=== PATIENT | male | born 1960 | race Two or more races ===

== ENCOUNTER 2017-01-31 10:13 | Emergency (ER) | payer MEDICAID, OTHER ==
[~2017-01-31] VITALS: Ht 184.2 cm; Wt 77.6 kg
--- NOTE | 2017-01-31 10:49 | Emergency Room Report ---
History of Present Illness General Chief Complaint: Lower Back Pain or Injury Source: Patient Present Illness HPI Is a 36-year-old male who presented after increased low back pain as well as left wrist pain. Patient reported having a fall in which he fell onto his back. As well as to left wrist. The patient no loss of consciousness. He reports having increased pain to his right flank as well as his right leg. He reports having pain to his leftwrist. Leg as well as to his low back. Fall occurred last week Allergies: Coded Allergies: No Known Allergies (Unverified , 01/31/17) Patient History Past Medical History: see triage record Reviewed Nursing Documentation: PMH: Agreed, PSxH: Agreed Nursing Documentation-PM Past Medical History: No History, Except For Hx Cardiac Problems: No - fistula surgery and left knee surgery Review of Systems All Other Systems: negative except mentioned in HPI Physical Exam Vital Signs Date Time Temp Pulse Resp B/P Pulse Ox O2 Delivery O2 Flow Rate FiO2 01/31/17 10:21 97.9 64 16 113/79 99 Room Air General Appearance: well appearing, no apparent distress, alert, GCS 15 Head: normocephalic, atraumatic ENT: hearing grossly normal, normal voice Neck: full range of motion, supple Respiratory: no respiratory distress, speaking full sentences Cardiovascular #1: normal inspection Gastrointestinal: normal bowel sounds Musculoskeletal: normal inspection, no calf tenderness, other - left wrist tenderness, scapphoid mild tenderness Neurologic: normal inspection, alert, oriented x3, responsive, normal gait Psychiatric: mood/affect normal Skin: no rash Medical Decision Making Diagnostic Impression: Primary Impression: Wrist pain, acute Additional Impressions: Low back pain Scaphoid fracture [facility] arthritis ER Course Patient was at for back pain. Differential diagnosis included but was not limited to herniated disc, cauda equina syndrome, abdominal aortic aneurysm, perforated ulcer, spinal epidural abscess, spinal stenosis, lumbar fracture, metastatic lesion, pyelonephritis. X-ray imaging was ordered due to patient's recent trauma. X-ray of the lumbar spine 3 views read by radiologist showed degenerative changes without fracture. X-ray of the left wrist read by radiology showed [facility] arthritis without definite scaphoid fracture. Patient was placed in a thumb spica splint. He is advised followup with his primary care physician for further evaluation. Last Vital Signs Date Time Temp Pulse Resp B/P Pulse Ox O2 Delivery O2 Flow Rate FiO2 01/31/17 10:21 97.9 64 16 113/79 99 Room Air Status: improved Disposition: HOME, SELF-CARE Condition: Stable Scripts Hydrocodone Bit/Acetaminophen 5-325* (NORCO 5-325*) 1 Each Tablet 1 TAB ORAL Q6H Y for For Pain, #10 TAB 0 Refills Prov: Shelton Antonio 01/31/17 Referrals: [facility] (PCP) Shelton Antonio Jan 31, 2017 10:49
[2017-01-31 10:50] VITALS: BP 113/79
[2017-01-31] MEDS ORDERED: NORCO 5-325 TA1 EACH ORAL (11:03)
[2017-01-31] MEDS: Ketorolac 60mg Inj IM ONE ×2 (11:11→11:14)
--- NOTE | 2017-01-31 11:46 | Diagnostic Imaging Report ---
Indication: Back pain Technique: 3 views of the lumbosacral spine. Comparison: None Findings: There is minimal scoliosis, possibly positional. Alignment is otherwise intact. No fracture. No evidence of bone destruction. There is minimal spur formation at C3-4 and C4-5. Impression: Minimal spurring. Minimal scoliosis, possibly positional. Otherwise negative.
[2017-01-31 11:58] VITALS: BP 113/79
--- NOTE | 2017-02-02 09:02 | Diagnostic Imaging Report ---
Indication: PAIN Technique: XRAY WRIST MIN 3V LEFT Comparison: None. Findings: There is mild narrowing of the first metacarpal carpal joint. The remainder the bones and joints are unremarkable. No fracture. No bone destruction. Impression: Degenerative change of the first metacarpal carpal joint.
== END 2017-01-31 11:59 | disposition home or self-care (01) ==
LOC: EMR 10:40
DX: M25.532 Pain in left wrist (principal); M54.5 Low back pain; S62.002A Unspecified fracture of navicular [scaphoid] bone of left wrist, initial encounter for closed fracture; W19.XXXA Unspecified fall, initial encounter; Y92.89 Other specified places as the place of occurrence of the external cause; M19.042 Primary osteoarthritis, left hand; M41.86 Other forms of scoliosis, lumbar region
CPT/HCPCS: 29280; 72020; 99283

== ENCOUNTER 2017-03-21 10:39 | Emergency (ER) | payer MEDICAID, OTHER ==
[~2017-03-21] VITALS: Ht 170.2 cm; Wt 77.1 kg
[~2017-03-21 10:39] MED LIST: NORCO 5-325 TA1 EACH ORAL
[2017-03-21] MEDS ORDERED: Mylanta II UD 30ml ORAL ONE (11:00)
[2017-03-21 11:02] VITALS: BP 126/78
[2017-03-21 11:26] LABS: TROPONIN I < 0.30 ng/mL (<=0.30)
[2017-03-21 11:27] LABS: ALANINE AMINOTRANSFERASE 25 U/L (3-41); ALBUMIN/GLOBULIN RATIO 1.5 (1.0-2.7); ANION GAP 11 (5-15); ASPARTATE AMINO TRANSFERASE 21 U/L (5-40); BASOPHILS % (AUTO) 0.9 % (0.0-2.0); CARBON DIOXIDE 26 mEQ/L (20-30); CHLORIDE 102 mEQ/L (98-107); CREATININE 0.9 mg/dL (0.7-1.2); EOSINOPHILS % (AUTO) 0.8 % (0.0-3.0); GLOMERULAR FILTRATION RATE > 60 mL/min (>60); HEMOLYSIS 2; LYMPHOCYTES % (AUTO) 25.5 % (20.0-45.0); MEAN CORPUSCULAR HEMOGLOBIN 30.2 PG (27.0-31.0); MEAN CORPUSCULAR HGB CONC 32.3 G/DL (32.0-36.0); MEAN CORPUSCULAR VOLUME 93 FL (80-99); MEAN PLATELET VOLUME 9.9 FL (6.5-10.1); MONOCYTES % (AUTO) 7.5 % (1.0-10.0); NEUTROPHILS % (AUTO) 65.3 % (45.0-75.0); PLATELET COUNT 199 K/UL (150-450); POTASSIUM 4.4 mEQ/L (3.4-4.9); RED BLOOD COUNT 5.03 M/UL (4.70-6.10); RED CELL DISTRIBUTION WIDTH 12.7 % (11.6-14.8); SODIUM 139 mEQ/L (135-145); TOTAL PROTEIN 6.8 g/dL (6.6-8.7); WHITE BLOOD COUNT 7.5 K/UL (4.8-10.8)
[2017-03-21 11:37] LABS: CKMB < 1.5 ng/mL (< 6.7)
--- NOTE | 2017-03-21 12:01 | Diagnostic Imaging Report ---
Indication: Chest pain Technique: XRAY CHEST 1 V Comparison: None Findings: Cardiomedial still silhouette is within normal limits. There is no consolidation, pneumothorax or pleural effusion. Mild interstitial prominence is noted. Degenerative changes of the spine are seen. Impression: No focal consolidation. Mild interstitial prominence, acute indeterminate. Clinical correlation recommended.
[2017-03-21 12:06] VITALS: BP 122/76
--- NOTE | 2017-03-25 23:22 | Emergency Room Report ---
History of Present Illness General Chief Complaint: Chest Pain Source: Patient Present Illness HPI Patient is a 56-year-old male presented after increased chest pain. He describes as a burning sensation. Patient was noted to have some numbness to his left arm which involve the fingers of his left hand only. Patient reports having recent alcohol use. He states that he had not been vomiting. He denies any exertional changed pain. He reports having a negative cardiac stress test approximately 2 years ago. He denies any black or bloody stools.The pain was constant in nature and had been present for greater than 6 hours Allergies: Coded Allergies: No Known Allergies (Unverified , 01/31/17) Patient History Past Medical History: see triage record Reviewed Nursing Documentation: PMH: Agreed, PSxH: Agreed Nursing Documentation-PMH Past Medical History: No Stated History Hx Cardiac Problems: No - fistula surgery and left knee surgery Review of Systems All Other Systems: negative except mentioned in HPI Physical Exam Vital Signs Date Time Temp Pulse Resp B/P (MAP) Pulse Ox O2 Delivery O2 Flow Rate FiO2 03/21/17 10:43 98.1 69 15 126/78 99 Room Air Sp02 EP Interpretation: reviewed, normal General Appearance: normal inspection, well appearing, no apparent distress, alert, GCS 15, non-toxic Head: atraumatic ENT: normal ENT inspection, hearing grossly normal, normal voice Neck: normal inspection, full range of motion, supple, no bony tend Respiratory: normal inspection, lungs clear, normal breath sounds, no respiratory distress, no retraction, no wheezing Cardiovascular #1: regular rate, rhythm, no edema Gastrointestinal: normal inspection, normal bowel sounds, non tender, soft, no guarding, no hernia Genitourinary: no CVA tenderness Musculoskeletal: normal inspection, back normal, normal range of motion Neurologic: normal inspection, alert, responsive, speech normal Psychiatric: normal inspection, judgement/insight normal, mood/affect normal Skin: normal inspection, normal color, no rash Medical Decision Making Diagnostic Impression: Primary Impression: Atypical chest pain ER Course Patient presented for chest pain. Differential diagnosis included but was not limited to acute coronary syndrome, pulmonary embolism, pneumonia, aortic dissection, shingles, pneumothorax, aortic dissection, esophageal rupture, pericarditis. Because of complexity of patient's case laboratory testing and imaging studies were ordered. EKG interpreted by me normal sinus rhythm without acute ST or T wave changes.I laboratory studies were unremarkable. Troponin was negativeThe patient was given Maalox. He is advised to have further workup if pain continued. He is advised outpatient stress testing and followup with his pr specialist. Labs Test 03/21/17 10:55 White Blood Count 7.5 K/UL (4.8-10.8) Red Blood Count 5.03 M/UL (4.70-6.10) Hemoglobin 15.2 G/DL (14.2-18.0) Hematocrit 47.0 % (42.0-52.0) Mean Corpuscular Volume 93 FL (80-99) Mean Corpuscular Hemoglobin 30.2 PG (27.0-31.0) Mean Corpuscular Hemoglobin Concent 32.3 G/DL (32.0-36.0) Red Cell Distribution Width 12.7 % (11.6-14.8) Platelet Count 199 K/UL (150-450) Mean Platelet Volume 9.9 FL (6.5-10.1) Neutrophils (%) (Auto) 65.3 % (45.0-75.0) Lymphocytes (%) (Auto) 25.5 % (20.0-45.0) Monocytes (%) (Auto) 7.5 % (1.0-10.0) Eosinophils (%) (Auto) 0.8 % (0.0-3.0) Basophils (%) (Auto) 0.9 % (0.0-2.0) D-Dimer 115 ng/mL (<500) Sodium Level 139 mEQ/L (135-145) Potassium Level 4.4 mEQ/L (3.4-4.9) Chloride Level 102 mEQ/L (98-107) Carbon Dioxide Level 26 mEQ/L (20-30) Anion Gap 11 (5-15) Blood Urea Nitrogen 12 mg/dL (7-23) Creatinine 0.9 mg/dL (0.7-1.2) Estimat Glomerular Filtration Rate > 60 mL/min (>60) Glucose Level 100 mg/dL (74-106) Calcium Level 9.0 mg/dL (8.6-10.2) Total Bilirubin 0.5 mg/dL (0.0-1.2) Aspartate Amino Transf (AST/SGOT) 21 U/L (5-40) Alanine Aminotransferase (ALT/SGPT) 25 U/L (3-41) Alkaline Phosphatase 61 U/L (40-129) Total Creatine Kinase 71 U/L (38-174) Creatine Kinase MB < 1.5 ng/mL (< 6.7) Creatine Kinase MB Relative Index 2.1 Troponin I < 0.30 ng/mL (<=0.30) Pro-B-Type Natriuretic Peptide 57 pg/mL (0-125) Total Protein 6.8 g/dL (6.6-8.7) Albumin 4.1 g/dL (3.5-5.2) Globulin 2.7 g/dL Albumin/Globulin Ratio 1.5 (1.0-2.7) EKG Diagnostic Results Rate: normal Rhythm: NSR ST Segments: no acute changes Last Vital Signs Date Time Temp Pulse Resp B/P (MAP) Pulse Ox O2 Delivery O2 Flow Rate FiO2 03/21/17 12:06 98.5 71 16 122/76 100 Room Air Status: improved Disposition: HOME, SELF-CARE Condition: Stable Patient Instructions: Nonspecific Chest Pain Shelton Antonio Mar 25, 2017 23:22
== END 2017-03-21 12:06 | disposition home or self-care (01) ==
LOC: EMR 11:10
DX: R07.89 Other chest pain (principal); R20.0 Anesthesia of skin
CPT/HCPCS: 36415; 71010; 80053; 82550; 82553; 83880; 84484; 85025; 85379; 93005; 99284

== ENCOUNTER 2017-05-29 14:19 | Emergency (ER) | payer OTHER ==
[~2017-05-29] VITALS: Ht 185.4 cm; Wt 77.1 kg
[2017-05-29 14:20] VITALS: BP 99/55
[2017-05-29] MEDS ORDERED: PROPECIA1 MG PO (14:24)
[2017-05-29] MEDS ORDERED: Ketorolac 60mg Inj IM ONE (14:45)
[2017-05-29] MEDS ORDERED: ROBAXIN-750750 MG PO (16:17)
[2017-05-29] MEDS ORDERED: ACETAMINOPHEN-1 EAC1 ORAL (16:17)
[2017-05-29] MEDS ORDERED: IBUPROFEN600 MG ORAL (16:17)
[2017-05-29 16:33] VITALS: BP 101/75
--- NOTE | 2017-05-29 19:21 | Emergency Room Report ---
History of Present Illness General Chief Complaint: Neck Pain Source: Patient Present Illness HPI The patient is a 56-year-old male presenting for neck pain which began 3 days prior. He states that this began the morning after he slept on the couch. Pain is 8/10 dull ache and does not radiate. Worse with head movement. he has tried Motrin at home which does help. He denies any other symptoms including nausea, vomiting, fever, chills, rash, blurred vision, dizziness, chest pain, shortness of breath Allergies: Coded Allergies: No Known Allergies (Unverified , 01/31/17) Patient History Past Medical History: see triage record Pertinent Family History: none Reviewed Nursing Documentation: PMH: Agreed, PSxH: Agreed Nursing Documentation-PMH Past Medical History: No History, Except For Hx Cardiac Problems: No - fistula surgery and left knee surgery Hx Hypertension: No Hx Pacemaker: No Hx Asthma: No Hx COPD: No Hx Diabetes: No Hx Cancer: No Hx Gastrointestinal Problems: No Hx Dialysis: No History Of Psychiatric Problem: No Hx Neurological Problems: No Hx Cerebrovascular Accident: No Hx Seizures: No Review of Systems All Other Systems: negative except mentioned in HPI Physical Exam Vital Signs Date Time Temp Pulse Resp B/P (MAP) Pulse Ox O2 Delivery O2 Flow Rate FiO2 05/29/17 14:20 98.1 70 16 99/55 98 Room Air Sp02 EP Interpretation: reviewed, normal General Appearance: no apparent distress, alert, GCS 15, non-toxic Head: normocephalic, atraumatic Eyes: bilateral eye normal inspection, bilateral eye PERRL ENT: hearing grossly normal, normal pharynx, no angioedema, normal voice Neck: full range of motion, no bony tend, tender lateral - R Respiratory: chest non-tender, lungs clear, normal breath sounds, speaking full sentences Cardiovascular #1: regular rate, rhythm, no edema Musculoskeletal: back normal, gait/station normal, normal range of motion, non- tender Neurologic: alert, oriented x3, responsive, motor strength/tone normal, sensory intact, speech normal Psychiatric: judgement/insight normal, memory normal, mood/affect normal, no suicidal/homicidal ideation Skin: normal color, no rash, warm/dry, well hydrated Medical Decision Making PA Attestation Dr. Mahan is my supervising physician. Patient management was discussed with my supervising physician Diagnostic Impression: Primary Impression: Cervical strain Qualified Codes: S16.1XXA - Strain of muscle, fascia and tendon at neck level , initial encounter ER Course The patient is a 56-year-old male presenting for neck pain which began 3 days prior. Differential diagnoses considered but not limited to: Cervical strain, disc herniation, fracture, meningitis PE: vitals WNL.NAD Head NC/AT PERRL A&Ox3 Neck: soft and supple. Full AROM. TTP over R paraspinous muscles. No midline tenderness. No step-offs The patient is given IM Toradol and soma and is feeling better. He will be discharged home with prescription for Tylenol No. 3 and Robaxin. He will apply heat to the area. He will follow up with his primary doctor. ER precautions are given Last Vital Signs Date Time Temp Pulse Resp B/P (MAP) Pulse Ox O2 Delivery O2 Flow Rate FiO2 05/29/17 16:33 98.1 75 15 101/75 99 Room Air Status: improved Disposition: HOME, SELF-CARE Condition: Improved Scripts Methocarbamol* (ROBAXIN-750*) 750 Mg Tablet 750 MG PO TID, #21 TAB 0 Refills Prov: ABRAHAM HICKS P.A. 05/29/17 Acetaminophen With Codeine (T#3) (TYLENOL #3 TAB*) Y Tab 1 TAB ORAL Q6HR Y for For Pain, #10 TAB Prov: TERZIANABRAHAM P.A. 05/29/17 Ibuprofen* (MOTRIN*) 600 Mg Tablet 600 MG ORAL Q8H Y for For Pain, #30 TAB 0 Refills Prov: SANDRAANABRAHAM P.A. 05/29/17 Patient Instructions: Muscle Strain Additional Instructions: I discussed my findings with the patient. All questions and concerns have been answered. Treatment and medication compliance have been addressed. I advised the patient that they need to follow up with PMD in 3-5 days. Return to ED if pain remains or worsens, numbness or tingling occurs, new rash is noticed, fever is noticed, or if needed for any reason. Patient verbalized understanding of discharge instructions. ABRAHAM HICKS May 29, 2017 19:21
== END 2017-05-29 16:33 | disposition home or self-care (01) ==
LOC: EMR 15:45
DX: S16.1XXA Strain of muscle, fascia and tendon at neck level, initial encounter (principal); X58.XXXA Exposure to other specified factors, initial encounter; Y92.009 Unspecified place in unspecified non-institutional (private) residence as the place of occurrence of the external cause
CPT/HCPCS: 96372; 99284

== ENCOUNTER 2017-08-04 16:17 | Emergency (ER) | payer MEDICAID, OTHER ==
[~2017-08-04] VITALS: Ht 182.9 cm; Wt 81.6 kg
[~2017-08-04 16:17] MED LIST changes: +ACETAMINOPHEN-1 EAC1 ORAL; +IBUPROFEN600 MG ORAL; +PROPECIA1 MG PO; +ROBAXIN-750750 MG PO
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
[2017-08-04] MEDS ORDERED: SOMA250 MG PO (17:10)
[2017-08-04] MEDS ORDERED: ROBAXIN500 MG PO (17:10)
[2017-08-04 17:21] VITALS: BP 104/64
[2017-08-04 17:30] VITALS: BP 104/64
== END 2017-08-04 17:30 | disposition home or self-care (01) ==
LOC: EMR 16:58
DX: S16.1XXA Strain of muscle, fascia and tendon at neck level, initial encounter (principal); S39.012A Strain of muscle, fascia and tendon of lower back, initial encounter; V43.52XA Car driver injured in collision with other type car in traffic accident, initial encounter; Y92.410 Unspecified street and highway as the place of occurrence of the external cause
CPT/HCPCS: 99283

== ENCOUNTER 2019-05-17 15:25 | Emergency (ER) | payer MEDICAID ==
[~2019-05-17] VITALS: Ht 182.9 cm; Wt 78.5 kg
[~2019-05-17 15:25] MED LIST changes: +ROBAXIN500 MG PO; +SOMA250 MG PO
[2019-05-17] MEDS ORDERED: MULTIVITAMINS1 EAC2 ORAL (15:59)
--- NOTE | 2019-05-17 16:00 | NUR ---
ED Nurse Note:pt. came with c/o chest pain since yesterday radiating to left arm ,blood semt to labs, VSS, EKG done,
[2019-05-17 16:28] VITALS: BP 115/85
[2019-05-17 16:38] LABS: BASOPHILS % (AUTO) 1.1 % (0.0-2.0); EOSINOPHILS % (AUTO) 1.1 % (0.0-3.0); HEMATOCRIT 46.4 % (42.0-52.0); HEMOGLOBIN 15.8 G/DL (14.2-18.0); LYMPHOCYTES % (AUTO) 30.6 % (20.0-45.0); MEAN CORPUSCULAR VOLUME 89 FL (80-99); MONOCYTES % (AUTO) 7.5 % (1.0-10.0); NEUTROPHILS % (AUTO) 59.8 % (45.0-75.0); PLATELET COUNT 197 K/UL (150-450); RED BLOOD COUNT 5.19 M/UL (4.70-6.10); RED CELL DISTRIBUTION WIDTH 12.3 % (11.6-14.8); WHITE BLOOD COUNT 8.8 K/UL (4.8-10.8)
[2019-05-17 16:44] LABS: INR 0.9 (0.9-1.1)
[2019-05-17 16:46] LABS: ANION GAP 1 mmol/L (5-15); BLOOD UREA NITROGEN 16 mg/dL (7-18); CARBON DIOXIDE 32 MMOL/L (21-32); CHLORIDE 106 MMOL/L (98-107); CREATININE 0.9 MG/DL (0.55-1.30); POTASSIUM 4.2 MMOL/L (3.5-5.1); SODIUM 139 MMOL/L (136-145)
--- NOTE | 2019-05-17 16:55 | Diagnostic Imaging Report ---
Indication: Chest pain Technique: One view of the chest Comparison: 03/21/2017 Findings: Lungs and pleural spaces are clear. Heart size is normal. No significant interim change Impression: No acute process
[2019-05-17 16:58] LABS: ALANINE AMINOTRANSFERASE 35 U/L (12-78); ALBUMIN 3.6 G/DL (3.4-5.0); ALKALINE PHOSPHATASE 77 U/L (46-116); ASPARTATE AMINO TRANSFERASE 24 U/L (15-37); BILIRUBIN,TOTAL 0.5 MG/DL (0.2-1.0)
[2019-05-17] MEDS ORDERED: ASPIR-LOW81 MG ORAL (17:20)
--- NOTE | 2019-05-17 17:23 | Emergency Room Report ---
History of Present Illness General Chief Complaint: Chest Pain Source: Patient Present Illness HPI 58-year-old male denies any past medical history no family history of cardiac disease presents with stabbing chest pain that comes and goes, not worsened with exercise not worsened with walking, no shortness of breath, no nausea no vomiting no fevers no chills, no dyspnea on exertion stabbing chest pain has been occurring for the past day severity is mild intermittent, patient presents for evaluation. Allergies: Coded Allergies: No Known Allergies (Unverified , 01/31/17) Patient History Past Medical History: see triage record Social History: Reports: smoking Reviewed Nursing Documentation: PMH: Agreed; PSxH: Agreed Nursing Documentation-PMH Past Medical History: No History, Except For Hx Cardiac Problems: No - fistula surgery and left knee surgery Hx Hypertension: No Hx Pacemaker: No Hx Asthma: No Hx COPD: No Hx Diabetes: No Hx Cancer: No Hx Gastrointestinal Problems: No Hx Dialysis: No Hx Neurological Problems: No Hx Cerebrovascular Accident: No Hx Seizures: No Review of Systems All Other Systems: negative except mentioned in HPI Physical Exam Vital Signs Date Time Temp Pulse Resp B/P (MAP) Pulse Ox O2 Delivery O2 Flow Rate FiO2 05/17/19 15:33 97.3 82 18 115/85 (95) 98 Room Air Sp02 EP Interpretation: reviewed, normal General Appearance: well appearing, no apparent distress, alert Head: normocephalic, atraumatic Eyes: bilateral eye PERRL, bilateral eye EOMI ENT: uvula midline, moist mucus membranes Neck: supple, thyroid normal, supple/symm/no masses Respiratory: lungs clear, no respiratory distress, no retraction, no accessory muscle use Cardiovascular #1: normal peripheral pulses, regular rate, rhythm, no edema, no gallop, no murmur Gastrointestinal: non tender, soft, no guarding, no rebound Musculoskeletal: normal inspection Neurologic: alert, oriented x3 Psychiatric: mood/affect normal Skin: no rash, warm/dry Medical Decision Making Diagnostic Impression: Primary Impression: Chest pain Qualified Codes: R07.9 - Chest pain, unspecified ER Course 58-year-old male presents with atypical chest pain, concerning for possible ACS versus pneumonia versus dissection, aspirin given to the patient EKG is negative chest x-ray is negative for troponins negative Patient given Aspirin 325mg. The patient has requested to leave the ED against medical advice. The patient reason(s) for leaving include, but are not limited to, the following: I don't want to stay the night. I believe this patient is of sound mind and competent to refuse medical care. The patient is responding and asking questions appropriately. The patient is oriented to person, place and time. The patient is not psychotic, delusional, suicidal, homicidal or hallucinating. The patient demonstrates a normal mental capacity to make decisions regarding their healthcare. The patient is clinically sober and does not appear to be under the influence of any illicit drugs at this time. The patient has been advised of the risks, in layman terms, of leaving AMA which include, but are not limited to , coma, permanent disability, loss of current lifestyle, delay in diagnosis. Alternatives have been offered - the patient remains steadfast in their wish to leave. The patient has been advised that should they change their mind they are welcome to return to this hospital, or any other, at any time. The patient understands that in no way does an AMA discharge mean that I do not want them to have the best medical care available. To this end, I have provided appropriate prescriptions, referrals, and discharge instructions. The patient did sign AMA paperwork. The above discussion was witnessed by another member of staff. Laboratory Tests Test 05/17/19 15:15 White Blood Count 8.8 K/UL (4.8-10.8) Red Blood Count 5.19 M/UL (4.70-6.10) Hemoglobin 15.8 G/DL (14.2-18.0) Hematocrit 46.4 % (42.0-52.0) Mean Corpuscular Volume 89 FL (80-99) Mean Corpuscular Hemoglobin 30.5 PG (27.0-31.0) Mean Corpuscular Hemoglobin Concent 34.1 G/DL (32.0-36.0) Red Cell Distribution Width 12.3 % (11.6-14.8) Platelet Count 197 K/UL (150-450) Mean Platelet Volume 8.9 FL (6.5-10.1) Neutrophils (%) (Auto) 59.8 % (45.0-75.0) Lymphocytes (%) (Auto) 30.6 % (20.0-45.0) Monocytes (%) (Auto) 7.5 % (1.0-10.0) Eosinophils (%) (Auto) 1.1 % (0.0-3.0) Basophils (%) (Auto) 1.1 % (0.0-2.0) Prothrombin Time 9.6 SEC (9.30-11.50) Prothrombin Time INR 0.9 (0.9-1.1) PTT 27 SEC (23-33) Sodium Level 139 MMOL/L (136-145) Potassium Level 4.2 MMOL/L (3.5-5.1) Chloride Level 106 MMOL/L (98-107) Carbon Dioxide Level 32 MMOL/L (21-32) Anion Gap 1 mmol/L (5-15) L Blood Urea Nitrogen 16 mg/dL (7-18) Creatinine 0.9 MG/DL (0.55-1.30) Estimate Glomerular Filtration Rate > 60 mL/min (>60) Glucose Level 90 MG/DL (74-106) Calcium Level 9.0 MG/DL (8.5-10.1) Total Bilirubin 0.5 MG/DL (0.2-1.0) Aspartate Amino Transferase (AST) 24 U/L (15-37) Alanine Aminotransferase (ALT) 35 U/L (12-78) Alkaline Phosphatase 77 U/L (46-116) Troponin I 0.000 ng/mL (0.000-0.056) Pro-B-Type Natriuretic Peptide 36 pg/mL (0-125) Total Protein 7.1 G/DL (6.4-8.2) Albumin 3.6 G/DL (3.4-5.0) Globulin 3.5 g/dL Albumin/Globulin Ratio 1.0 (1.0-2.7) Lipase 216 U/L (73-393) EKG Diagnostic Results EKG Time: 15:39 EP Interpretation: NSR, rate 80, QTc 440, no acute ST elevations, normal axis Rhythm Strip Diag. Results Rhythm Strip Time: 17:18 EP Interpretation: yes Rate: 67 Rhythm: NSR, no PVC's, no ectopy Chest X-Ray Diagnostic Results Chest X-Ray Diagnostic Results : Chest X-Ray Ordered: Yes # of Views/Limited/Complete: 1 View Indication: Chest Pain EP Interpretation: Yes Interpretation: no consolidation, no effusion, no pneumothorax, no acute cardiopulmonary disease Impression: No acute disease Electronically Signed by: Vish Ariza MD Last Vital Signs Date Time Temp Pulse Resp B/P (MAP) Pulse Ox O2 Delivery O2 Flow Rate FiO2 05/17/19 16:28 82 18 Room Air 05/17/19 16:28 97.3 115/85 98 Disposition: AGAINST MEDICAL ADVICE Condition: Stable Scripts Aspirin* (ASPIR-LOW*) 81 Mg Tablet. 81 MG ORAL DAILY, #30 TAB Prov: Vish Ariza MD 05/17/19 Referrals: [facility]. [facility] Patient Instructions: Nonspecific Chest Pain Additional Instructions: The patient was provided with discharge instructions, notified to follow-up with a primary care doctor and or specialist in the next 24-48 hours, and to return to the ED if they have worsening of their symptoms. Please note that this report is being documented using Speech[employer] technology. This can lead to erroneous entry secondary to incorrect interpretation by the dictating instrument. Vish Ariza MD May 17, 2019 17:23
--- NOTE | 2019-05-17 17:35 | NUR ---
AMA:pt. is A/ox4 ambulatory with steady gait left ER condition stable, consulted by ER MD SEE AMA FORM.
[2019-05-17 17:37] VITALS: BP 115/85
--- NOTE | 2019-05-19 14:00 | Cardiology Report ---
APPROVED REPORT EKG Measurement Heart [id number] Normal sinus rhythm Normal ECG
== END 2019-05-17 17:37 | disposition left against medical advice (07) ==
LOC: EMR 15:52 → CANBEDREQ 17:50
DX: R07.9 Chest pain, unspecified (principal); F17.200 Nicotine dependence, unspecified, uncomplicated
CPT/HCPCS: 36415; 71045; 80053; 83690; 83880; 84484; 85025; 85610; 85730; 93005; Z7502; 99284